=== PATIENT | female | born 1985 | race Caucasian/White ===

== ENCOUNTER 2016-10-03 08:58 | Outpatient (CLI) | payer OTHER ==
[~2016-10-03] VITALS: Ht 170.2 cm; Wt 76.9 kg
[~2016-10-03 08:58] MED LIST: ACET500C5 PO; CALC-649 PO; FERR27TA PO; ONDA4TAB35 PO; PREN1TAB49
[2016-10-03 09:04] VITALS: Ht 170.2 cm; Wt 76.9 kg
[2016-10-03 09:08] VITALS: BP 110/69; PULSE 89; RESP 18
--- NOTE | 2016-10-03 10:06 | RADRPT ---
PROCEDURE: US OB. CLINICAL INDICATION: labor, vaginal bleeding TECHNIQUE: Transabdominal OB views of the pelvis are available for review. COMPARISON: None FINDINGS: Within the uterus, there is a single, live intrauterine . The presentation is cephalic. Th e heart rate is 129 beats per minute. The amniotic fluid index in four quadrants is 7.6 cm. The placenta is noted to be anterior and grade 3. There are no findings of abruption or previa. The biophysical profile score is 8/8. IMPRESSION: 1. Single live intrauterine with an amniotic fluid index of 7.6 cm. The biophysical prof ile score is 8/8. 2. The placenta is anterior and grade 3. There are no findings of abruption or previa. RPTAT: QQ .Mari Davis MD, Date Time Electronically viewed and signed by .Mari Davis MD, on 10/03/2016 10:05 .F/
--- NOTE | 2016-10-03 10:41 | TRIAGE ---
OB Triage Datetime Report Generated by CPN: 10/03/2016 10:40 Datetime: 10/03/2016 10:25 Labor Evaluation Frequency: 4-8 Monitor Mode: External Duration (sec)2399: 50-70 Quality: Mild Pattern: Normal: <= 5 Contractions in 10 Minutes Resting Tone [place]: Relaxed Heart Rate FHR Baseline Rate: 125 Monitor Mode: External US FHR Baseline Changes: No Baseline Change Variability: Moderate 6-25 bpm Accelerations: 15X15 Decelerations: None Category: Category I Pain Assessment Pain Presence: None/Denies Pain Assessment Comments: Pt denies feeling any pain or pressure with contractions Datetime: 10/03/2016 10:18 Monitor Mode: External US Datetime: 10/03/2016 10:15 Vaginal Exam Dilatation (cms): 2.0 Effacement (%): 50 Station: -3 Exam By: Bharti RN Membrane Status: Intact Datetime: 10/03/2016 09:25 Labor Evaluation Frequency: x1 contraction noted in last hour Monitor Mode: External Duration (sec)2399: 80 Quality: Mild Pattern: Normal: <= 5 Contractions in 10 Minutes Resting Tone [place]: Relaxed Heart Rate FHR Baseline Rate: 135 Monitor Mode: External US FHR Baseline Changes: No Baseline Change Variability: Moderate 6-25 bpm Accelerations: 15X15 Decelerations: None Category: Category I Pain Assessment Pain Presence: None/Denies Pain Assessment Comments: Pt denies feeling any pain or pressure with contractions Datetime: 10/03/2016 09:11 Time of Arrival: 10/03/2016 08:37 EGA: 38.4 Arrived By: Ambulatory Arrived From: Home Chief Complaint: Spotting Movement: Present Contractions: Denies/Absent Rupture of Membranes: Denies Vaginal Bleeding: Normal Show Vaginal Discharge: Present Recent Sexual Intercouse: Denies Abdominal Trauma: Not Applicable Patient Complaints: Other Time Provider Notified: 10/03/2016 09:13 Provider Notified: Graham Initial Plan: NST, BPP/FRANCISCA, Placenta placement Datetime: 10/03/2016 09:00 Stage of : OB Triage Assessment Type: Triage Maternal Assessment Level of Consciousness: Fully Conscious DTR's/Clonus: DTRs 2+; No Clonus Headache: Denies Blurred Vision: No Respiratory Effort: Unlabored; Regular Rhythm; Equal Expansion Breath Sounds, Left: Clear and Equal Breath Sounds, Right: Clear and Equal Nausea/Vomiting: Denies RUQ Epigastric Pain: Denies Lower Extremities Edema: None Degree: None Upper Extremities Edema: None Degree: None Facial Edema: None Temperature Route: Oral Fall Risk Assessment History of Falling: (0) No Secondary Diagnosis: (0) No Ambulatory Aid: (0) Bedrest/Nurse Assist IV Therapy: (0) No Gait: (0) Normal/Bedrest/Immobile Mental Status: (0) Oriented to Own Ability Fall Score: 0 Fall Risk Score Definition: No Risk: No action required
--- NOTE | 2016-10-03 16:38 | QN ---
Documentation Comment iup 38 weeks co ucx vss exam wnl a/p iup 38 weeks false labor dc stout DONTE TIWARI MD Oct 03, 2016 16:38
== END 2016-10-03 10:35 | disposition home or self-care (01) ==
LOC: OBT 08:58 → L-D 08:59 → OBT 10:35
PROVIDERS: ATTEND Obstetrics & Gynecology
DX: O47.1 False labor at or after 37 completed weeks of gestation (principal); Z3A.38 38 weeks gestation of pregnancy
CPT/HCPCS: 76818; Z7500; G0463

== ENCOUNTER 2016-10-04 01:05 | Inpatient (IN) | payer OTHER ==
[~2016-10-04] VITALS: Ht 170.2 cm; Wt 76.6 kg
[2016-10-04] MEDS ORDERED: LACTATED RINGER'S 1,000 ML IV SCH (01:34)
[2016-10-04 01:38] VITALS: Ht 170.2 cm; Wt 76.6 kg
[2016-10-04 01:39] VITALS: BP 119/77; PULSE 75; RESP 18
[2016-10-04] MEDS ORDERED: BUTORPHANOL 2 MG INJ IV PRN (02:00)
[2016-10-04] MEDS ORDERED: AMPICILLIN 2 GM/NS (PMX) 100 ML IV ONE (02:00)
[2016-10-04] MEDS ORDERED: MISOPROSTOL 200 MCG TAB PR PRN (02:00)
[2016-10-04] MEDS ORDERED: OXYTOCIN 30 UNITS/LR 500 ML IV SCH ×2 (02:00)
[2016-10-04] MEDS ORDERED: CARBOPROST 250 MCG INJ IM PRN (02:00)
[2016-10-04] MEDS ORDERED: LIDOCAINE 1% (MPF) 30 ML INJ INJ PRN (02:00)
[2016-10-04] MEDS ORDERED: IBUPROFEN 600 MG TAB PO PRN (02:00)
[2016-10-04] MEDS ORDERED: METHYLERGONOVINE 0.2 MG INJ IM PRN (02:00)
[2016-10-04] MEDS ORDERED: OXYTOCIN 30 UNITS/LR 500 ML IV PRN (02:00)
[2016-10-04] MEDS ORDERED: LACTATED RINGER'S 1,000 ML IV PRN (02:00)
--- NOTE | 2016-10-04 02:28 | TRIAGE ---
OB Triage Datetime Report Generated by CPN: 10/04/2016 02:27 Datetime: 10/04/2016 01:52 Pain Assessment Pain Scale: 7 Pain Presence: Intermittent Pain Type: Contraction Pain Location: Abdomen Pain Goal: 2 Pain Relief Measures: Comfort Measures Datetime: 10/04/2016 01:31 Assessment Type: Triage Maternal Assessment Level of Consciousness: Fully Conscious DTR's/Clonus: DTRs 2+; No Clonus Headache: Denies Blurred Vision: No Respiratory Effort: Unlabored; Regular Rhythm; Equal Expansion Breath Sounds, Left: Clear and Equal Breath Sounds, Right: Clear and Equal Nausea/Vomiting: Denies RUQ Epigastric Pain: Denies Lower Extremities Edema: None Degree: None Upper Extremities Edema: None Degree: None Facial Edema: None Fall Risk Assessment History of Falling: (0) No Secondary Diagnosis: (0) No Ambulatory Aid: (0) Bedrest/Nurse Assist IV Therapy: (0) No Gait: (0) Normal/Bedrest/Immobile Mental Status: (0) Oriented to Own Ability Fall Score: 0 Fall Risk Score Definition: No Risk: No action required Datetime: 10/04/2016 01:18 Vaginal Exam Dilatation (cms): 3.5 Effacement (%): 80 Station: -2 Exam By: IC Vaginal Bleeding: Small Presentation 'A': Cephalic Datetime: 10/04/2016 01:13 Labor Evaluation Monitor Mode: External Heart Rate Monitor Mode: External US Comments: MONITORS PLACED. AUDIBLE FHT Datetime: 10/04/2016 01:09 Time of Arrival: 10/04/2016 01:01 EGA: 38.5 Arrived By: Wheelchair Arrived From: Home Chief Complaint: UTERINE CONTRACTIONS, VAGINAL BLEEDING Movement: Present Contractions: Regular Time Contractions Began: 10/03/2016 16:00 Contractions: <7 MIN APART Rupture of Membranes: Denies Vaginal Bleeding: Small Vaginal Discharge: Denies Recent Sexual Intercouse: Denies Abdominal Trauma: Not Applicable Patient Complaints: Contractions; Other Time Provider Notified: 10/04/2016 01:27 Provider Notified: DELSHAD Initial Plan: FHM, SVE Datetime: 10/03/2016 09:11 EGA: 38.4 Datetime: 10/03/2016 09:00 Fall Score: 0 Fall Risk Score Definition: No Risk: No action required
[2016-10-04 02:36] LABS: ABNORMAL IP MESSAGE 1; BASOPHILS % 0.2 % (0.0-2.0); EOSINOPHILS % 0.3 % (0.0-7.0); HEMATOCRIT 37.7 % (37.0-47.0); HEMOGLOBIN 12.9 g/dl (12.0-16.0); LYMPHOCYTES # 1.4 10^3/ul (0.8-2.9); LYMPHOCYTES % 12.3 % (15.0-51.0); MEAN CORPUSCULAR HEMOGLOBIN 31.2 pg (29.0-33.0); MEAN CORPUSCULAR HGB CONC 34.2 g/dl (32.0-37.0); MEAN CORPUSCULAR VOLUME 91.3 fl (82.0-101.0); MEAN PLATELET VOLUME 13.6 fl (7.4-10.4); MONOCYTE # 0.8 10^3/ul (0.3-0.9); MONOCYTES % 7.6 % (0.0-11.0); PLATELET COUNT 124 10^3/UL (140-415); RED BLOOD COUNT 4.13 10^6/ul (4.20-5.40); RED CELL DISTRIBUTION WIDTH 13.4 % (11.5-14.5)
[2016-10-04 02:46] LABS: POSITIVE DIFF @See below
[2016-10-04] MEDS ORDERED: FENTAnyl 2MCG/ML-ROPIV 0.2% 100 ML ONE (02:51)
[2016-10-04 02:58] LABS: INR 0.92; PARTIAL THROMBOPLASTIN TIME 24.6 Sec (25.0-35.0); PROTIME 12.4 Sec (12.2-14.2)
[2016-10-04] MEDS ORDERED: NALOXONE (0.4 MG/ML) INJ IV PRN (03:00)
[2016-10-04] MEDS ORDERED: FENTAnyl 2MCG/ML-ROPIV 0.2% 100 ML BAG EPI SCH (03:00)
[2016-10-04] MEDS ORDERED: ONDANSETRON 4 MG INJ IV PRN ×2 (03:00→10:30)
[2016-10-04] MEDS ORDERED: DIPHENHYDRAMINE 50 MG INJ IV PRN (03:00)
[2016-10-04] MEDS ORDERED: AMPICILLIN 1 GM/NS (PMX) 50 ML IV SCH (06:00)
[2016-10-04] MEDS ORDERED: METOCLOPRAMIDE 10 MG INJ ONE (07:00)
[2016-10-04] MEDS ORDERED: ONDANSETRON 4 MG INJ ONE (07:00)
[2016-10-04] MEDS ORDERED: MINERAL OIL LIGHT 10 ML VIAL TOP PRN (07:00)
--- NOTE | 2016-10-04 07:53 | HP ---
Date/Time of Note Date/Time of Note DATE: 10/04/16 TIME: 07:46 OB - History Hx of Present Free Text/Dictation 30 years old female admitted to [facility] in labor EDC October 13 pelvic examination on admission cervix 3-4 cm dilated 80% effacement vertex at -2 station intact membrane heart rate category 1 Patient has been under the care of the [facility] her not complicated with gestational diabetes or -induced hypertension Chief Complaint: Labor pain Estimated Due Date: Oct 13, 2016 : 4 Para: 3 Care: Good Care Ultrasounds: Normal mid trimester US Obstetrical Complications: None Medical Complications: None Past Family/Social History * Past Medical, Surgical, Family and Obstetric Histories reviewed from chart. Rubella: immune RPR/VDRL: Negative GBS Status: Negative HBsAG: Negative OB Admission Exam Vital Signs Vital Signs Vital Signs Date Time Temp Pulse Resp B/P Pulse Ox O2 Delivery O2 Flow Rate FiO2 10/04/16 01:39 97.9 75 18 119/77 Room Air Physical Exam HEENT: WNL Heart: Rhythm Normal Lungs: Clear, Equal Abdomen: WNL Extremities: Normal Reflexes: Normal Cervical Dilatation: 4cm Effacement: 75% Station: -2 Membranes: Intact Heart Rate: 130's Accelerations: Accelerations Present Decelerations: No Decelerations Varibility: Moderate Contractions on Admission: < 5 Minutes Apart Intensity: Moderate Last 72 hours Lab Results CBC & BMP 10/04/16 01:57 OB Assessment/Plan Reason for admission: other (30 years old admitted to [facility] in labor cervical exam on admission cervix 4 cm dilated 80 % effaced vertex at -2 station with intact membrane is being transferred from triage to the delivery room expecting normal vaginal delivery) JENNIFER JUNIOR MD Oct 04, 2016 07:53
--- NOTE | 2016-10-04 08:22 | LDN ---
Date/Time of Note Date/Time of Note DATE: 10/04/16 TIME: 08:19 Delivery Summary Normal spontaneous vaginal delivery of a baby girl from OA position shoulders delivered with no difficulty rest of the baby's body follow cord clamped after stopped pulsation placenta spontaneous expulsion inspected complete blood loss 200 patient sustained a small first-degree perineal laceration repaired 3-0 chromic catgut Weeks of Gestation 38 weeks 5 days Placenta Delivered: Spontaneously Meconium: Light Episiotomy: No Laceration repair: Small first-degree perineal repair with 0 chromic catgut Anesthesia type: Epidural Estimated blood loss: 200 Sponge & Needle done & correct: Yes All needle counts correct: Yes Any foreign bodies felt in the: No Problems: Delivery Information Sex Infant Sex: female Apgars 1 Minute: 8 5 Minute: 9 Suctioning Nose & mouth suctioned at giacomo: Yes Delee suction performed: No Umbilical Cord Umbilical cord with: 3 Vessels Cord presentations: nuchal cord Nuchal cord present X: 1 JENNIFER JUNIOR MD Oct 04, 2016 08:22
[2016-10-04 10:10] VITALS: BP 120/74; PULSE 70; RESP 19
[2016-10-04] MEDS ORDERED: OXYCODONE/ASPIRIN (4.88/325) TAB PO PRN ×2 (10:30)
[2016-10-04] MEDS ORDERED: WITCH HAZEL/GLYCERIN PAD PR PRN (10:30)
[2016-10-04] MEDS ORDERED: DIBUCAINE 1% 30 GM OINT PR PRN (10:30)
[2016-10-04] MEDS ORDERED: LANOLIN 7 GM TUBE TOP PRN (10:30)
[2016-10-04] MEDS ORDERED: ACETAMINOPHEN 325 MG TAB PO PRN (10:30)
[2016-10-04] MEDS ORDERED: HYDROCODONE/APAP (5/325) TAB PO PRN ×2 (10:30)
[2016-10-04] MEDS ORDERED: BENZOCAINE 20% 56 ML SPRAY TOP PRN (10:30)
[2016-10-04] MEDS: IBUPROFEN 600 MG TAB PO SCH ×3 (12:08→23:42)
[2016-10-04] MEDS: OXYTOCIN 30 UNITS/LR 500 ML IV SCH ×2 (12:10→14:10)
[2016-10-04 12:20] VITALS: BP 119/74; PULSE 82; RESP 20
[2016-10-04 15:36] VITALS: BP 108/72; PULSE 74; RESP 20
[2016-10-04 20:52] VITALS: BP 114/65; PULSE 81; RESP 18
[2016-10-04] MEDS: SENNA/DOCUSATE NA (8.6MG/50MG) TAB PO SCH (21:48)
[2016-10-04 23:50] VITALS: BP 102/57; PULSE 81; RESP 18
[2016-10-05 04:50] VITALS: BP 110/66; PULSE 72; RESP 18
[2016-10-05] MEDS: IBUPROFEN 600 MG TAB PO SCH ×4 (05:55→23:33)
[2016-10-05 08:12] VITALS: BP 104/64; PULSE 85; RESP 20
[2016-10-05] MEDS: SENNA/DOCUSATE NA (8.6MG/50MG) TAB PO SCH ×2 (09:31→20:56)
--- NOTE | 2016-10-05 09:58 | PN ---
Date/Time of Note Date/Time of Note DATE: 10/05/16 TIME: 09:55 OB Subjective Subjective Subjective day 1 Afebrile Abdomen soft Uterus firm Lochia normal Current Medications Medications (Trade) Dose Ordered Sig/Laureen Route PRN Reason Start Time Stop Time Status Last Admin Dose Admin Lactated Ringer's 1,000 ml @ 125 mls/hr Q8H IV 10/04/16 01:34 10/04/16 10:13 DC 10/04/16 04:18 Ampicillin 100 ml @ 100 mls/hr ONCE ONCE IV 10/04/16 02:00 10/04/16 04:59 DC Ampicillin (Ampicillin 1 Gm/ NS (Pmx)) 50 ml @ 100 mls/hr Q4H IV 10/04/16 06:00 10/04/16 06:00 DC Butorphanol Tartrate (Stadol) 2 mg Q2H PRN IV PAIN 10/04/16 02:00 10/04/16 10:13 DC Lidocaine 30 ml 30 ml ONCE PRN INJ EPISIOTOMY/TEARING 10/04/16 02:00 10/04/16 10:13 DC Oxytocin/Lactated Ringer's 500 ml @ 125 mls/hr ONCE -MAY REPEAT X1 IV 10/04/16 02:00 10/04/16 10:13 DC 10/04/16 09:19 Oxytocin/Lactated Ringer's 500 ml @ 125 mls/hr ONCE IV 10/04/16 02:00 10/04/16 10:13 DC 10/04/16 09:19 Ibuprofen 600 mg 600 mg ONCE PRN PO Mild Pain (Pain Score 1-3) 10/04/16 02:00 10/04/16 10:13 DC Lactated Ringer's 1,000 ml @ 2,000 mls/hr Q30M PRN IV PRE-EPIDURAL BOLUS 10/04/16 02:00 10/04/16 10:13 DC 10/04/16 04:17 Oxytocin/Lactated Ringer's 500 ml @ 0 mls/hr ONCE PRN IV For Hemorrhage Management 10/04/16 02:00 10/04/16 10:13 DC Methylergonovine Maleate (Methergine) 0.2 mg ONCE PRN IM VAGINAL BLEEDING 10/04/16 02:00 10/04/16 10:13 DC Carboprost Tromethamine (Hemabate) 250 mcg ONCE PRN IM VAGINAL BLEEDING 10/04/16 02:00 10/04/16 10:13 DC Misoprostol 1000 mcg 1,000 mcg ONCE PRN [place] VAGINAL BLEEDING 10/04/16 02:00 10/04/16 10:13 DC Fentanyl/ Ropivacaine 100 ml @ STK-MED ONCE .ROUTE 10/04/16 02:51 10/04/16 02:52 DC Diphenhydramine HCl (Benadryl) 25 mg Q4H PRN IV PRURITUS 10/04/16 03:00 10/04/16 10:13 DC Ondansetron HCl (Zofran Inj) 4 mg Q6H PRN IV NAUSEA AND/OR VOMITING 10/04/16 03:00 10/04/16 10:13 DC Naloxone HCl (Narcan) 0.2 mg Q2M PRN IV FOR RESP RATE 8 OR LESS 10/04/16 03:00 10/04/16 10:13 DC Fentanyl/ Ropivacaine 100 ml EPIDURAL (PCEA) EPI 10/04/16 03:00 10/04/16 10:13 DC Mineral Oil 30 ml 30 ml ONCE PRN TOP DELIVERY 10/04/16 07:00 10/04/16 10:13 DC Oxytocin/Lactated Ringer's 500 ml @ 125 mls/hr Q4H IV 10/04/16 10:10 10/04/16 18:09 DC 10/04/16 12:10 Ibuprofen (Motrin) 600 mg Q6 PO 10/04/16 12:00 10/05/16 05:55 Acetaminophen (Tylenol Tab) 650 mg Q4H PRN PO PAIN LEVEL 1-5 10/04/16 10:30 10/05/16 09:31 Acetaminophen/ Hydrocodone Bitart ([place] (5/325)) 1 tab Q4H PRN PO PAIN LEVEL 1-5 10/04/16 10:30 Acetaminophen/ Hydrocodone Bitart ([place] (5/325)) 2 tab Q4H PRN PO PAIN LEVEL 6-10 10/04/16 10:30 Oxycodone/Aspirin (Percodan) 1 tab Q3H PRN PO PAIN LEVEL 1-5 10/04/16 10:30 Oxycodone/Aspirin (Percodan) 2 tab Q3H PRN PO PAIN LEVEL 6-10 10/04/16 10:30 Ondansetron HCl (Zofran Inj) 4 mg Q6H PRN IV NAUSEA AND/OR VOMITING 10/04/16 10:30 Senna/Docusate Sodium (Senokot-S) 1 tab BID PO 10/04/16 21:00 10/05/16 09:31 Witch Maureen/ Glycerin (Tucks Pads) 1 pad BEDSIDE MEDICATION PRN [place] HEMORRHOID/EPISIOTMY PAIN 10/04/16 10:30 Benzocaine (Dermoplast [place]) 1 spray BEDSIDE MEDICATION PRN TOP HEMORRHOID/EPISIOTMY PAIN 10/04/16 10:30 10/04/16 12:08 Dibucaine (Nupercainal) 1 applic BEDSIDE MEDICATION PRN [place] HEMORRHOID/EPISIOTMY PAIN 10/04/16 10:30 Lanolin (Hrr-S-Maqlcx) 1 applic BEDSIDE MEDICATION PRN TOP BEDSIDE FOR SAURABH TO NIPPLES 10/04/16 10:30 10/04/16 12:10 Measles/Mumps/ Rubella Vaccine Live (Mmr Ii Vaccine) 0.5 ml ONCE ONCE SC* 10/06/16 09:00 10/06/16 09:01 Extremity normal JENNIFER JUNIOR MD Oct 05, 2016 09:58
[2016-10-05 10:16] LABS: BASOPHILS % 0.2 % (0.0-2.0); EOSINOPHILS % 0.5 % (0.0-7.0); HEMATOCRIT 35.4 % (37.0-47.0); HEMOGLOBIN 11.6 g/dl (12.0-16.0); LYMPHOCYTES # 1.2 10^3/ul (0.8-2.9); LYMPHOCYTES % 14.5 % (15.0-51.0); MEAN CORPUSCULAR HEMOGLOBIN 30.5 pg (29.0-33.0); MEAN CORPUSCULAR HGB CONC 32.8 g/dl (32.0-37.0); MEAN CORPUSCULAR VOLUME 93.2 fl (82.0-101.0); MEAN PLATELET VOLUME 12.9 fl (7.4-10.4); MONOCYTE # 0.7 10^3/ul (0.3-0.9); MONOCYTES % 7.7 % (0.0-11.0); NEUTROPHILS % 76.5 % (39.0-77.0); PLATELET COUNT 119 10^3/UL (140-415); RED CELL DISTRIBUTION WIDTH 13.9 % (11.5-14.5); WHITE BLOOD COUNT 8.6 10^3/ul (4.8-10.8)
[2016-10-05 16:08] VITALS: BP 117/74; PULSE 67; RESP 20
[2016-10-05 19:35] VITALS: BP 113/75; PULSE 72; RESP 19
[2016-10-06 03:35] VITALS: BP 122/83; PULSE 79; RESP 19
[2016-10-06] MEDS: IBUPROFEN 600 MG TAB PO SCH ×2 (05:25→12:27)
[2016-10-06 07:43] VITALS: BP 114/65; PULSE 79; RESP 20
[2016-10-06] MEDS ORDERED: MEASLES,MUMPS,RUBELLA VACCINE INJ SC* ONE (09:00)
[2016-10-06] MEDS: SENNA/DOCUSATE NA (8.6MG/50MG) TAB PO SCH (09:08)
--- NOTE | 2016-10-06 10:07 | PD.PPDC ---
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
[2016-10-06 15:18] VITALS: BP 106/61; PULSE 78; RESP 20
--- NOTE | 2016-10-12 16:52 | DS ---
Date/Time of Note Date/Time of Note DATE: 10/12/16 TIME: 16:49 Discharge Summary Admission/Discharge Info Admit Date/Time Oct 04, 2016 at 01:27 Discharge Date/Time Oct 06, 2016 at 15:29 Patient Condition: Good Procedures Hx of Present Illness TERM IN LABOR Hospital Course SATISFACTORY Home Meds Active Scripts Acetaminophen* (Tylophen*) 500 Mg Capsule, 1 CAP PO Q6H Y for PAIN AND OR ELEVATED TEMP, #20 CAP Prov:ALEXANDRU FIGUEROA NP 01/07/15 Ondansetron Hcl* (Zofran* ODT) 4 mg -ODT Tab.disper, 4 MG PO Q6 Y for NAUSEA AND /OR VOMITING, #10 TAB Prov:ALEXANDRU FIGUEROA NP 01/07/15 Reported Medications Calcium Carbonate (Calcium) 1 Tab Tablet, 1 TAB PO BID 03/05/12 Ferrous Sulfate (Iron) 1 Tab Tablet, 1 TAB PO DAILY 03/05/12 Vits W-Ca,Fe,Fa(<1MG) () 1 Tab Tablet 07/29/11 Follow-up Plan POST INST. ADVISED TO MAKE APPOINTMENT IN 2 WEEKS. Primary Care Provider Not On Staff Doctor Time spent on discharge: < 30 minutes JENNIFER JUNIOR MD Oct 12, 2016 16:52
== END 2016-10-06 15:29 | disposition home or self-care (01) | DRG 775 ==
LOC: L-D 01:05 → OBT 01:05 → L-D 01:27 → PP1 09:56
PROVIDERS: ADMIT Obstetrics & Gynecology; ATTEND Obstetrics & Gynecology
PROC: 10E0XZZ Delivery of Products of Conception, External Approach (ICD-10-PCS; principal; 2016-10-04)
PROC: 0HQ9XZZ Repair Perineum Skin, External Approach (ICD-10-PCS; 2016-10-04)
DX: O70.0 First degree perineal laceration during delivery (principal); Z37.0 Single live birth; Z3A.38 38 weeks gestation of pregnancy
CPT/HCPCS: 62319; 85025; 85610; 85730; 86592; 86900; 86901; 87340; G0463; J2405; J2590; J2765; J3010; J7120

== ENCOUNTER 2017-01-03 10:24 | Day surgery (SDC) | payer OTHER ==
[~2017-01-03] VITALS: Ht 170.2 cm; Wt 67.7 kg
[2017-01-03] VITALS (12 sets, daily range): BP systolic 119–132; BP diastolic 73–87; PULSE 64–80; RESP 13–28; Ht 170.2 cm; Wt 67.7 kg
[2017-01-03] MEDS ORDERED: ONDANSETRON 4 MG INJ ONE (12:28)
[2017-01-03] MEDS ORDERED: PROPOFOL 20 ML ONE (12:28)
[2017-01-03] MEDS ORDERED: FENTAnyl 50 MCG/ML VIAL ONE (12:28)
[2017-01-03] MEDS ORDERED: SUCCINYLCHOLINE CHLORIDE 100 MG/5 ML SYG IV ONE (12:28)
[2017-01-03] MEDS ORDERED: CEFAZOLIN 1 GM INJ ONE (12:28)
[2017-01-03] MEDS ORDERED: ROCURONIUM 50 MG INJ ONE (12:28)
[2017-01-03] MEDS ORDERED: METOCLOPRAMIDE 10 MG INJ ONE (12:29)
[2017-01-03] MEDS ORDERED: BUPIVACAINE 0.5%/EPI (SDV) 30 ML INJ ONE (12:30)
[2017-01-03] MEDS ORDERED: HYDROmorphONE (0.2 MG/ML) 10ML SYG IV PRN ×3 (13:00)
[2017-01-03] MEDS ORDERED: ONDANSETRON 4 MG INJ IV PRN (13:00)
[2017-01-03] MEDS ORDERED: FENTAnyl 50 MCG/ML VIAL IV PRN ×2 (13:00)
[2017-01-03] MEDS ORDERED: MEPERIDINE 25 MG INJ IV PRN (13:00)
--- NOTE | 2017-01-03 13:37 | PDOCDIS ---
Discharge Instructions DIAGNOSIS Discharge Diagnosis Post minilaparotomy bilateral tubal ligation CONDITION Patient Condition: Good HOME CARE INSTRUCTIONS: Diet Instructions: Clear liquid ACTIVITY: Activity Restrictions: Slowly Increase Activity Rest between Activity Avoid heavy lifting No Sexual Activity Do not Drive Do not operate Machinery Keep Limb Elevated Weight Bearing Bathing Restrictions: Shower FOLLOW UP/APPOINTMENTS Follow-up Plan Post minilaparotomy instruction given recommended patient to make appointment to be seen at the clinic in 1 week OTHER ORDERS: Other Orders: Post minilaparotomy bilateral tubal ligation instructions given patient received a prescription of analgesics Motrin 600 mg every 6 hours as needed [place] 5/325 one tablet every 4 hours as needed JENNIFER JUNIOR MD Jan 03, 2017 13:37
--- NOTE | 2017-01-03 14:02 | OPR ---
Operative Report Planned Procedure Free Text/Dictation 29 years old requested voluntary sterilization by minilaparotomy bilateral tubal ligation this operation has been explained to the patient the complication of the surgery including but not limited to wound infection injury to the surrounding organs, failure rate of tubal ligation increased risk of ectopic future failure to conceive. Procedure date Jan 03, 2017 Procedure(s) Minilaparotomy bilateral tubal ligation Performed by see signature line Satellite Communications Operator none Anesthesiologist: ROBIN CABALLERO MD Pre-procedure diagnosis Request for voluntary sterilization bilateral tubal ligation Anesthesia Type: general Post-Procedure Post-procedure diagnosis Minilaparotomy bilateral tubal ligation Findings Normal size non uterus normal-appearing bilateral tubes and ovaries Estimated Blood Loss: 0 - 10 mls Specimen(s) Segment of the fimbria and ampullar section of both fallopian tube Grafts/Implant(s) none Complication(s) none Pt Condition post procedure: stable Procedure Description Under satisfactory general anesthesia patient prepped and draped and placed supine position small 2 inches Pfannenstiel incision was made incision carried through the subcutaneous tissue bleeders brought under control with electrocautery. Fascia incised to the length of incision. Rectus muscle divided in the midline. Peritoneum exposed and entered through a transverse incision. Exploration of abdomen normal size uterus normal-appearing both tubes and ovaries. Fimbria and ampullar section of the right fallopian tube grasped by a [place], suture material used #0 plain catgut which was reinforced with the same suture material, that segment of the tube was excised ,cut end of the tube was cauterized and the specimen submitted to the pathology ,the same procedure performed for the opposite side.sponge needle and instrument reported to be correct. Abdominal peritoneum closed with pursestring 2-0 chromic catgut. Fascia closed with #0 PDS in continuous fashion. Subcutaneous tissue approximated with 2 interrupted 2-0 chromic catgut. Skin closed subcuticular with 3-0 Monocryl. Estimated blood loss less than 10 cc patient tolerated procedure well transferred to recovery room in good condition. JENNIFER JUNIOR MD Jan 03, 2017 13:58
== END 2017-01-03 16:58 | disposition home or self-care (01) ==
LOC: SDS 10:24
PROVIDERS: ATTEND Obstetrics & Gynecology
DX: Z30.2 Encounter for sterilization (principal)
CPT/HCPCS: 58615; 84703; J0690; J1170; J2175; J2405; J2765; J3010; Z7512; Z7610; 88302

== ENCOUNTER 2018-03-30 13:46 | Emergency (ER) | payer SELFPAY ==
[~2018-03-30] VITALS: Wt 69.2 kg
[2018-03-30 14:43] VITALS: BP 122/67; PULSE 96; RESP 20
== END 2018-03-30 18:53 | disposition left against medical advice (07) ==
LOC: FTE 13:46
DX: Z53.21 Procedure and treatment not carried out due to patient leaving prior to being seen by health care provider (principal)